=== PATIENT | male | born 1975 | race Caucasian/White ===

== ENCOUNTER 2025-04-14 17:38 | Emergency (ER) | payer OTHER, SELFPAY ==
--- NOTE | ~2025-04-14 | CT_ITS ---
EXAMINATION: CT abdomen pelvis wo con DATE: 04/14/2025 18:36 INDICATION: Right flank pain TECHNIQUE: Computed tomography (CT) of the abdomen and pelvis was performed without intravenous contrast. The dose-length product was 496.27 mGy-cm. Automated exposure control and iterative reconstruction technique were employed. COMPARISON: None. FINDINGS: Lung bases unremarkable. Heart size normal. The liver, spleen, pancreas, adrenal glands are unremarkable. There is a 4 mm right proximal ureteral stone with mild hydronephrosis. There are nonobstructing bilateral renal stones. No free air or free fluid. Small fat-containing umbilical hernia. Mild lumbar spondylosis. IMPRESSION: 1. Proximal right ureteral stone measuring 4 mm with mild hydronephrosis. 2: Bilateral nephrolithiasis. Reviewed, dictated and finalized at location O.
[2025-04-14 17:39] VITALS: BP 138/50; PULSE 72; RESP 20; TEMP 36.7; O2SAT 100
--- OUTSIDE RECORDS SUMMARY | 2025-04-14 17:40 | XMS_ITS | Clinical Summary ---
Author Organization [facility] Address [address] [place] [address] Phone Care Team Providers Care Die Filer Name Role Phone Jacoby Vega MD Primary Care Provider [phone] Allergies Active Allergy Reactions Criticality Noted Date Comments Divalproex Sodium Rash 08/14/2024 Medications HYDROcodone-acet aminophen (NORCO) 5-325 MG TabletIndication s:Moderate to Moderately Severe Pain Take 1-2 Tablets by mouth every 4 hours as needed for Moderate or more severe pain. Indications: Moderate to Moderately Severe Pain 20 Tablet 5 Active hydrOXYzine (ATARAX) 25 MG Tablet Take 1 Tablet by mouth 3 times daily as needed for Itching. 90 Tablet 5 Active metoclopramide (REGLAN) 10 MG Tablet Take 1 Tablet by mouth every 6 hours as needed for Nausea - 2nd line or Vomiting. 120 Tablet 5 Active ondansetron (ZOFRAN-ODT) 4 MG TABLET DISPERSIBLE Take 1 Tablet by mouth every 6 hours as needed for Nausea - 1st line. 10 Tablet 5 Active senna (SENOKOT) 8.6 MG Tablet Take 1 Tablet by mouth daily. 30 Tablet 5 Active naloxone HCl (Narcan) 4 MG/0.1ML Liquid 1 [place] by Nasal route as needed for Opioid Reversal. Administer in one nostril for symptoms of overdose (severe sleepiness, breathing problems, not responsive). Call 911. May repeat 1 spray in alternate nostril in 2-3 minutes if needed. 2 Each Active Active Problems Problem Noted Date Diagnosed Date Closed left ankle fracture 08/14/2024 Trimalleolar fracture, left, closed, initial enc ounter 08/14/2024 GERD (gastroesophageal reflux disease) Social History Tobacco Use Types Packs/Day Years Used Date Smoking Tobacco: Every Day Cigarettes Tobacco Cessation:Ready to Q uit: Not Asked; Counseling Given: Not Answered Alcohol Use Standard Drinks/Week Comments Not Currently 0 (1 standard drink = 0.6 oz pur e alcohol) [facility] Utilities Answer Date Recorded In the past 12 months has e electric, gas, oil, or water [employer] threatened to shut off services in your home? Patient declined 08/14/2024 Social Connection and Isolation Panel Answer Date Recorded In a typical week, how many times do you talk on the phone with family, friends, or neighbors? Patient declined 08/14/2024 How often do you get togethe r with friends or relatives? Patient declined 08/14/2024 How often do you attend presybeterian or roman catholic serv ices? Patient declined 08/14/2024 Do you belong to any clubs o r organizations such as presybeterian groups, unions, fraternal or athletic groups, or school groups? Patient declined 08/14/2024 How often do you attend meet ings of the clubs or organizations you belong to? Patient declined 08/14/2024 Are you , , di vorced, , never , or living with a partner? Patient declined 08/14/2024 AUDIT-C Answer Date Recorded Q1: How often do you have a drink containing alc ohol? Patient declined 08/14/2024 Q2: How many drinks containi ng alcohol do you have on a typical day when you are drinking? Patient declined 08/14/2024 Q3: How often do you have si x or more drinks on one occasion? Patient declined 08/14/2024 Overall Financial Resource Strain (CARDIA) Answe r Date Recorded How hard is it for you to pa y for the very basics like food, housing, medical care, and heating? Patient declined 08/14/2024 [facility] - Occupational Stress Questionnaire Answer Date Recorded Do you feel stress - tense, restless, nervous, or anxious, or unable to sleep at night because your mind is troubled all the time - these days? Patient declined 08/14/2024 Exercise Vital Sign Answer Date Recorde d On average, how many days pe r week do you engage in moderate to strenuous exercise (like a brisk walk)? Patient declined On average, how many minutes do you engage in exercise at this level? Patient declined 08/14/2024 Hunger Vital Sign Answer Date Recorded Within the past 12 months, y ou worried that your food would run out before you got the money to buy more. Patient declined Within the past 12 months, t he food you bought just didn't last and you didn't have money to get more. Patient declined 03/2025 PRAPARE - Transportation Answer Date Re corded In the past 12 months, has l ack of transportation kept you from medical appointments or from getting medications? Patient declined 08/14/2024 In the past 12 months, has l ack of transportation kept you from meetings, work, or from getting things needed for daily living? Patient declined 08/14/2024 Housing Stability Vital Sign Answer Baljinder e Recorded In the last 12 months, was t here a time when you were not able to pay the mortgage or rent on time? Patient declined 08/14/19 25 In the past 12 months, how m any times have you moved where you were living? 1 08/14/2024 At any time in the past 12 m [facility], were you homeless or living in a custodial (including now)? 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 Gender Identity Not on file Sexual Orientation Not on file Last Filed Vital Signs Vital Sign Reading Time Taken Comments Blood Pressure 138/75 08/15/2024 2:16 PM EMBRYOLOGY PROFESSOR Pulse 92 08/15/2024 2:16 PM EMBRYOLOGY PROFESSOR Temperature 38.6 C (101.5 F) 08/15/2024 2:16 PM EMBRYOLOGY PROFESSOR Rachael RN notified Respiratory Rate 20 08/15/2024 2:16 PM EMBRYOLOGY PROFESSOR Oxygen Saturation 98% 08/15/2024 2:1 6 PM EMBRYOLOGY PROFESSOR Inhaled Oxygen Concentration - - Weight 104.3 kg (230 lb) 08/14/2024 3:4 1 PM EMBRYOLOGY PROFESSOR Height 175.3 cm (5' 9) 08/14/2024 3:41 PM EMBRYOLOGY PROFESSOR Body Mass Index 33.97 08/14/2024 3:41 PM EMBRYOLOGY PROFESSOR Plan of Treatment Health Maintenance Due Date Last Done Comments Hepatitis C Virus (HCV) Screening 1976 Pneumococcal Immunization Combined (1 of 2 - PCV) 1995 Hepatitis B Immunization (3 of 3 - Hep B Twinrix 3-dose series) 12/22/2006 07/24/2006, 06/12/2006 Cologuard 2021 Colonoscopy 2021 Colorectal Cancer Screening 2021 Immunochemical Fecal Occult Blood 2021 SARS-COV-2 Immunization ( - 2023- season) 2024 Influenza Immunization (#1) 2025 Respiratory Syncytial Virus (RSV) Immunization (Adult) (1 - 1-dose 75+ series) 2051 TdaP Immunization Completed 08/02/2014, 07/25/2013 Human Papillomavirus (HPV) Immunization Aged Out No longer eligible b ased on patient's age to complete this topic Meningococcal Immunization (ACWY) Aged Out No longer eligible b ased on patient's age to complete this topic Rotavirus Immunization Aged Out No lo nger eligible based on patient's age to complete this topic Medical Devices Implanted Type Area Supervisor [employer]ive [employer]n Device Identifier Shelf Expiration Date Model / Serial / Lot Non Locking Screw Implanted:Qty: 1 on 08/14/2024 by Jacoby Recinos MD at [facility] Left: Fibula KALEN [id number] / [id number] / N/A Left Distal Lateral Fibula 7 Hole Plate Implanted:Qty: 1 on 08/14/2024 by Jacoby Recinos MD at [facility] Left: Fibula KALEN [id number] / [id number] / N/A Non Locking Screw Implanted:Qty: 3 on 08/14/2024 by Jacoby Recinos MD at [facility] Left: Fibula KALEN [id number] / [id number] / N/A Non Locking Screw Implanted:Qty: 2 on 08/14/2024 by Jacoby Recinos MD at [facility] Left: Fibula KALEN [id number] / [id number] / N/A Non Locking Screw Implanted:Qty: 1 on 08/14/2024 by Jacoby Recinos MD at [facility] Left: Fibula KALEN [id number] / [id number] / N/A Non Locking Screw Implanted:Qty: 1 on 08/14/2024 by Jacoby Recinos MD at [facility] Left: Fibula KALEN [id number] / [id number] / N/A Locking Screw Implanted:Qty: 2 on 08/14/2024 by Jacoby Recinos MD at [facility] Left: Fibula KALEN [id number] / [id number] / N/A Locking Screw Implanted:Qty: 3 on 08/14/2024 by Jacoby Recinos MD at [facility] Left: Fibula KALEN [id number] / [id number] / N/A Locking Screw Implanted:Qty: 2 on 08/14/2024 by Jacoby Recinos MD at [facility] Left: Fibula KALEN [id number] / [id number] / N/A Insurance GENERIC Advance Directives * Full Code (Latest Code Status on File) Date Activated Date Inactivated Comments 08/14/2024 2:56 PM CPR-Full Treatm ent: FULL ARREST: Attempt Resuscitation/CPR wit intubation and mechanical ventilation. PRE-ARREST: Use entire range of life support measures to stabilize the patient. Care Teams Die Filer Relationship Specialty Start Date End Date Jacoby Vega MD [address] [place] [address] PCP - General Family Medicine 08/14/24
--- OUTSIDE RECORDS SUMMARY | 2025-04-14 17:40 | XMS_ITS | Clinical Summary ---
Author Organization [facility] Address [address] [place] [id number] Care Team Providers Care Oracle Software Engineer Name Role Phone Lauryn Arango [facility] Primary Care Provider + Allergies Active Allergy Reactions Criticality Noted Date Comments Valproic Acid Itching 09/26/2022 Medications amoxicillin-clav ulanate (AUGMENTIN) 875-125 MG tablet Take 1 tablet by mouth 2 (two) times daily. 09/12/2022 Active albuterol sulfate HFA 108 (90 Base) MCG/ACT inhaler Inhale 2 puffs into the lungs every 4 (four) hours as needed. 09/17/2022 Active benzonatate (TESSALON) 200 MG capsule Take 200 mg by mouth 3 (three) times daily as needed. 09/17/2022 Active ibuprofen (MOTRIN) 800 MG tablet Take 800 mg by mouth 2 (two) times daily. 09/17/2022 Active Active Problems Problem Noted Date Diagnosed Date Other tear of medial meniscu s of left knee as current injury, initial encounter 09/26/2022 Effusion of left knee joint 09/26/2022 Loose body of left knee 09/26/2022 Family History Medical History Relation Comments pacemaker Brother Heart Disease Mother Relation Status Comments Brother Alive Father Alive Mother Alive Social History Tobacco Use Types Packs/Day Years Used Date Smoking Tobacco: Some Days Cigarettes Smokeless Tobacco: Never Tobacco Cessation:Ready to Q uit: Not Asked; Counseling Given: Not Answered Alcohol Use Standard Drinks/Week Comments Not Currently 0 (1 standard drink = 0.6 oz pur e alcohol) Sex and Gender Information Value Date Recorded Sex Assigned at Not on file 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 Gender Identity Not on file Sexual Orientation Not on file Last Filed Vital Signs Vital Sign Reading Time Taken Comments Blood Pressure 138/93 02/07/2023 5:45 PM CDT Pulse 90 02/07/2023 5:44 PM CDT Temperature 36.9 C (98.4 F) 02/07/2023 5:44 PM CDT Respiratory Rate 16 02/07/2023 5:44 PM CDT Oxygen Saturation 99% 02/07/2023 5: 45 PM CDT Inhaled Oxygen Concentration - - Weight 102.9 kg (226 lb 12.8 oz) 02/07/2023 5:44 PM CDT Height 175.3 cm (5' 9) 02/07/2023 5:44 PM CDT Body Mass Index 33.49 02/07/2023 5:44 PM CDT Plan of Treatment Health Maintenance Due Date Last Done Comments Colorectal Cancer Screening Colonoscopy (10 Years) 1976 Annual Physical 1979 Hepatitis C 1994 DTaP, Tdap and Td Vaccines ( 1 - Tdap) 1995 Hepatitis B Vaccines (1 of 3 - 19+ 3-dose series) 1995 Pneumococcal Vaccine: Pediat rics (0 to 5 Years) and At-Risk Patients (6 to 49 Years) (1 of 2 - PCV) 1995 COVID-19 Vaccine (1 - 2023-2 5 season) 2025 Meningococcal B Vaccine Aged Out No l onger eligible based on patient's age to complete this topic Meningococcal Vaccine Aged Out No john damian eligible based on patient's age to complete this topic RSV Immunizations Under 20 Months Aged Out No longer eligible based on patient's age to complete this topic Insurance [facility] Care Teams Oracle Software Engineer Relationship Specialty Start Date End Date Lauryn Arango FNP [address] [place] [phone] PCP - General NURSE PRACTITIONER 01/17/20
[2025-04-14] MEDS: KETOROLAC (*BKC) 60 MG/2 ML VIAL IM (17:44)
--- NOTE | 2025-04-14 17:56 | ED.MALEGU ---
HPI - Male Genitourinary General Chief complaint: Urogenital-Male Stated complaint: right flank pain Time Seen by Provider: 04/14/25 17:55 Source: patient Mode of arrival: ambulatory Limitations: no limitations History of Present Illness HPI Narrative: Patient is an 49-year-old male with right flank pain and back pain and groin pain for the past 2 hours. This was acute onset. Had kidney stone many years ago. Complaint: testicle pain (Right) Onset (ago): hour(s) (2) Duration: constant Location: right testicle, right inguinal region, right flank and abdomen (Right) Radiation: right testicle Severity: severe Severity scale (1-10): 8 Quality: sharp and stabbing Relieving factors: none Exacerbating factors: palpation and movement Context: other (Patient having right groin and flank and abdomen and back pain for the past 2 hours) Associated symptoms: Reports denies other symptoms Related Data Sexually active: Yes Allergies Allergy/AdvReac Type Severity Reaction Status Date / Time divalproex sodium (From Allergy Unknown Unknown Verified 04/14/25 17:40 Depakote) Review of Systems Review of Systems: All systems reviewed & are unremarkable except as noted in HPI and below Constitutional: Constitutional: Reports no additional constitutional complaints Eyes: Eyes: Reports no additional eye complaints ENT: Reports system reviewed and no additional complaints, except as documented Cardiovascular: Cardiovascular: Reports no additional cardiovascular complaints Respiratory: Respiratory: Reports no additional respiratory complaints Gastrointestinal: Gastrointestinal: Reports no additional gastrointestinal complaints Genitourinary: Genitourinary: Reports no additional male genitourinary complaints Musculoskeletal: Musculoskeletal: Reports no additional musculoskeletal complaints Integumentary/Breasts: Skin/Breast: Reports system reviewed and no additional complaints, except as docu Neurologic: Reports system reviewed and no additional complaints, except as documented Psychiatric: Psychiatric: Reports no additional psychiatric complaints Endocrine: Endocrine: Reports no additional endocrine complaints Hematologic/Lymphatic: Hematologic/Lymphatic: Reports no additional hematologic/lymphatic complaints Allergic/Immunologic: Allergic/Immunologic: Reports no additional allergic/immunologic complaints PMFSH Social History Social History Smoking status: Current some day smoker Alcohol intake: current Substance use: never Lack of Transportation: No Lack of Food: Never True Current Housing: I Have Housing Concerned About Future Housing: No Difficulty Paying Gas/Electric Bills: No Difficulty Paying for Meds: No Currently Unemployed: No Education: Decline to Answer Difficulty w/ Childcare or Family Care: No Occupation/Education: occupation Gender identity (if verbalized by the patient): Male Exam Const: General: healthy appearing Nutritional Appearance: well nourished Limitations: no limitations Other: Acute distress secondary to pain the colon Toradol was given initially and that has subsided most of the pain at this time HENMT: Head: normal to inspection Ears: TM's normal bilaterally Face/Nose/Sinus: Normal external nose present Eyes: Conjunctivae: conjunctivae normal Pupils: Equal, round and reactive pupils present EOM: EOMs intact bilaterally Neck: Neck: normal visual inspection Chest: Chest palpation & inspection: normal inspection of the chest Resp: Effort & Inspection: normal respiratory effort and not labored Auscultation: clear to auscultation bilaterally and no crackles Cardio: Rate: regular rate Rhythm: regular rhythm Heart sounds: no murmurs GI: Inspection: non-distended GI Palp: Yes Soft to palpation, Yes Tenderness to palpation present (GI) (Right flank), No Guarding due to palpation present (GI), No Rigid due to palpation, No Hernia present, No Palpable mass present and No Rebound tenderness present Auscultation: normal bowel sounds : General: Yes bladder normal to palpation Back/Spine/Pelvis: Back: No no CVA tenderness and CVA tenderness (Right) Skin: General skin exam: normal color Rashes: no rashes Wounds: no wounds Neuro: General: patient oriented x3, moves all extremities and no meningeal signs Extrem: General: normal to inspection Psych: Mental Status: mental status grossly normal Affect: normal affect Attitude: cooperative Course Vital Signs Vital signs: Vital Signs Temperature 36.7 C 04/14/25 17:39 Pulse Rate 72 04/14/25 17:39 Respiratory Rate 20 04/14/25 17:39 Blood Pressure 138/50 L 04/14/25 17:39 Pulse Oximetry 100 04/14/25 17:39 Oxygen Delivery Room Air 04/14/25 17:39 Temperature 36.7 C 04/14/25 17:39 Pulse Rate 72 04/14/25 17:39 Respiratory Rate 20 04/14/25 17:39 Blood Pressure 138/50 L 04/14/25 17:39 Pulse Oximetry 100 04/14/25 17:39 Oxygen Delivery Room Air 04/14/25 17:39 MDM - Male Genitourinary MDM Narrative Medical decision making narrative: Patient is a 49-year-old male with right flank pain for the past 2 hours. Will do labs and a CT scan for stone. Urinalysis. Lab Data Attestation: I reviewed the patient's lab results. Lab results narrative: CBC repeated and value went down from 17,000 thousand to 15,000 on its own after pain was relieved and this was a margination of wbc's due to pain 04/14/25 20:42 04/14/25 18:10 Labs: Lab Results 04/14/25 04/14/25 Range/Units 18:10 20:42 WBC 17.3 H 15.9 H (4.8-10.8) K/mm3 RBC 4.44 L 4.30 L (4.70-6.10) M/mm3 Hgb 13.6 L 13.3 L (14.0-18.0) g/dL Hct 40.7 39.2 L (40.0-54.0) % MCV 91.7 91.2 (78.0-102.0) fL MCH 30.6 30.9 (27.0-31.0) pg MCHC 33.4 33.9 (32-36) g/dL RDW 13.0 13.1 (11.6-14.4) % Plt Count 349 321 (150-420) K/mm3 MPV 9.9 9.6 (8.7-11.0) fl Immature Gran % (Auto) 0.5 H 0.5 H (0.0-0.0) % Neut % (Auto) 81.5 H 84.6 H (50.0-70.0) % Lymph % (Auto) 12.3 L 9.8 L (18.0-42.0) % [place] % (Auto) 4.2 4.5 (2.0-11.0) % Eos % (Auto) 1.0 0.3 L (1.0-6.0) % Baso % (Auto) 0.5 0.3 (0.0-1.0) % Lymph # (Auto) 2.14 1.56 (1.10-4.50) K/mm3 [place] # (Auto) 0.72 0.71 (0.10-0.90) K/mm3 Eos # (Auto) 0.18 0.05 (0.02-0.50) K/mm3 Baso # (Auto) 0.09 0.05 (0.00-0.10) K/mm3 Abs Immat Gran (auto) 0.08 H 0.08 H (0.00-0.00) K/mm3 Absolute Neuts (auto) 14.12 H 13.47 H (1.70-7.20) K/mm3 Absolute Nucleated RBC 0.00 0.00 (0.00-0.00) K/mm3 Nucleated RBC % 0.0 0.0 (0-0.0) % PT 10.1 (9.50-12.1) Seconds INR 0.9 APTT 22.7 L (23.9-30.70) Sec Sodium 139 (137-145) mmol/L Potassium 4.0 (3.4-5.0) mmol/L Chloride 106 (98-107) mmol/L Carbon Dioxide 23 (22-30) mmol/L Anion Gap 10 (4-12) mmol/L BUN 18 (9-20) mg/dL Creatinine 1.30 (0.7-1.3) mg/dL Estim Creat Clear Calc 71 ml/min Estimated GFR 59 (59 - ) Glucose 140 H (65-110) mg/dL Calculated Osmolality 291 (285-295) mOsm/kg Calcium 9.7 (8.4-10.2) mg/dL Total Bilirubin 0.6 (0.2-1.3) mg/dL AST 37 (17-59) U/L ALT 28 (6-50) U/L Alkaline Phosphatase 73 (38-126) U/L Total Protein 8.0 (6.3-8.2) g/dL Albumin 4.5 (3.5-5.1) g/dL Urine Color Yellow (Yellow) Urine Appearance Clear (Clear) Urine pH 8.5 H (5.0-8.0) Ur Specific [place] 1.015 (1.010-1.020) Urine Protein Trace H (Negative) Urine Glucose (UA) Negative (Negative) Urine Ketones Trace H (Negative) Ur Blood (Man) 3+ H (Negative) Urine Nitrate Negative (Negative) Urine Bilirubin Negative (Negative) Urine Urobilinogen 0.2 (0.2-1.0) mg/dL Leukocyte Esterase Rfl Negative (Negative) MEGHAN/UL Urine RBC 21-50 H (0-2) /hpf Urine WBC 0-3 (0-3) /hpf Ur Squamous Epith Cells None seen (Few) /hpf Amorphous Sediment Few H (None) Urine Bacteria 1+ H (None) /hpf Imaging Data Attestation: I personally reviewed and interpreted this imaging study as follows: Radiologist's impression: CT scan of the abdomen and pelvis shows IMPRESSION: 1. Proximal right ureteral stone measuring 4 mm with mild hydronephrosis. 2: Bilateral nephrolithiasis. Discharge Plan Discharge Clinical Impression: Right ureteral stone Patient Disposition: Home Condition: Stable Instructions: Antibiotic Form, Ureteral Stones (ED) Additional Instructions: Please follow-up with urology in the next 1-2 weeks. Strain all urine. Collect any stones. Bring to Urology. Patient Language: Georgian Prescriptions: New cephalexin 500 mg capsule 500 mg PO BID 7 Days Qty: 14 0RF tamsulosin [Flomax] 0.4 mg capsule 0.4 mg PO DAILY Qty: 20 0RF hydrocodone-acetaminophen 5-325 mg tablet 1 tablet PO Q8H PRN (Reason: pain) Qty: 20 0RF Rx Instructions: 1-2 tabs per dose No Action omeprazole 40 mg capsule,delayed release(DR/EC) 40 mg PO DAILY Qty: 90 1RF Follow-up/Referrals: Gary,MD Jacoby [Primary Care Provider, Family Practice] Time of Disposition: 20:52
[2025-04-14 18:13] LABS: Hematocrit 40.7 % (40.0-54.0); Hemoglobin 13.6 g/dL (14.0-18.0); Immature Granulocyte Percent A 0.5 % (0.0-0.0); Lymphocytes Absolute Auto 2.14 K/mm3 (1.10-4.50); Mean Corpuscular HGB Conc 33.4 g/dL (32-36); Mean Corpuscular Hemoglobin 30.6 pg (27.0-31.0); Mean Corpuscular Volume 91.7 fL (78.0-102.0); Nucleated Red Blood Cells Absolute Auto 0.00 K/mm3 (0.00-0.00); Nucleated Red Blood Cells Perc 0.0 % (0-0.0); Platelet Count Result 349 K/mm3 (150-420); Red Blood Count 4.44 M/mm3 (4.70-6.10); White Blood Count 17.3 K/mm3 (4.8-10.8)
[2025-04-14 18:28] LABS: Alanine Aminotransferase 28 U/L (6-50); Albumin Level 4.5 g/dL (3.5-5.1); Alkaline Phosphatase 73 U/L (38-126); Anion Gap 10 mmol/L (4-12); Aspartate Amino Transferase 37 U/L (17-59); Bilirubin,Total 0.6 mg/dL (0.2-1.3); Blood Urea Nitrogen 18 mg/dL (9-20); Calcium 9.7 mg/dL (8.4-10.2); Carbon Dioxide 23 mmol/L (22-30); Chloride 106 mmol/L (98-107); Estimated CRCL calculation 71 ml/min; Estimated Glomerular Filt Rate 59; Glucose 140 mg/dL (65-110); Osmolality Calculated 291 mOsm/kg (285-295); Potassium 4.0 mmol/L (3.4-5.0); Sodium 139 mmol/L (137-145); Total Protein 8.0 g/dL (6.3-8.2)
[2025-04-14 18:29] LABS: INR 0.9; Partial Thromboplastin Time 22.7 Sec (23.9-30.70); Prothrombin Time 10.1 Seconds (9.50-12.1)
[2025-04-14 19:57] LABS: Add Urine Microscopic? YES; Appearance Urine Clear (Clear); Glucose Urine UA Negative (Negative); Leukocyte Esterase Ur Negative LEU/UL (Negative); Nitrate Urine Negative (Negative); Specific Grav Ur 1.015 (1.010-1.020)
[2025-04-14] MEDS: TAMSULOSIN HCL 0.4 MG CAPSULE PO (20:08)
[2025-04-14 20:46] LABS: Hematocrit 39.2 % (40.0-54.0); Hemoglobin 13.3 g/dL (14.0-18.0); Immature Granulocyte Percent A 0.5 % (0.0-0.0); Lymphocytes Absolute Auto 1.56 K/mm3 (1.10-4.50); Mean Corpuscular HGB Conc 33.9 g/dL (32-36); Mean Corpuscular Hemoglobin 30.9 pg (27.0-31.0); Mean Corpuscular Volume 91.2 fL (78.0-102.0); Nucleated Red Blood Cells Absolute Auto 0.00 K/mm3 (0.00-0.00); Nucleated Red Blood Cells Perc 0.0 % (0-0.0); Platelet Count Result 321 K/mm3 (150-420); Red Blood Count 4.30 M/mm3 (4.70-6.10); White Blood Count 15.9 K/mm3 (4.8-10.8)
[2025-04-14 20:55] VITALS: BP 139/70; PULSE 70; RESP 17; TEMP 36.7; O2SAT 100
== END 2025-04-14 20:55 | disposition home or self-care (01) ==
PROVIDERS: Emergency Provider Emergency Medicine; PCP Family Medicine
DX: N20.1 Calculus of ureter (principal); F17.200 Nicotine dependence, unspecified, uncomplicated
CPT/HCPCS: 36415; 74176; 80053; 81001; 85025; 85610; 85730; 96372; 99284; A9270; J1885